=== PATIENT | female | born 1975 | race Caucasian/White ===

== ENCOUNTER → 2020-01-25 14:12 | Outpatient (CLI) | payer OTHER | END | disposition home or self-care (01) | LOC: EKG 14:12 → LAB 14:12 | PROVIDERS: ATTEND Obstetrics & Gynecology | DX: R07.89 Other chest pain (principal) ==

== ENCOUNTER 2020-04-17 12:57 | Day surgery (SDC) | payer OTHER ==
[~2020-04-17 12:57] MED LIST: ACTOS15 MG PO; LOSARTAN-HCTZ1 EAC1 PO; METFORMIN HCL1000 M2 PO; NORVASC10 MG PO; TRULICITY0.75 MG/0. SQ
[2020-04-17] MEDS ORDERED: KETO10TA2 PO (17:22)
[2020-04-17] MEDS ORDERED: PERCOCET 5-3251 EACH PO (17:24)
== END 2020-04-17 19:50 | disposition home or self-care (01) ==
LOC: CIR.AMB 12:57
PROVIDERS: ATTEND Obstetrics & Gynecology
DX: C53.8 Malignant neoplasm of overlapping sites of cervix uteri (principal); R87.613 High grade squamous intraepithelial lesion on cytologic smear of cervix (HGSIL)

== ENCOUNTER 2020-06-26 11:30 | Inpatient (IN) | payer OTHER ==
[~2020-06-26] VITALS: Ht 170.2 cm; Wt 95.3 kg
[~2020-06-26 11:30] MED LIST changes: +KETO10TA2 PO; +PERCOCET 5-3251 EACH PO
[2020-06-26] MEDS ORDERED: ZOLOFT25 MG PO (15:02)
[2020-06-26] MEDS ORDERED: CARDIZEM30 MG PO (15:02)
[2020-07-04] MEDS ORDERED: COLACE100 MG PO (09:49)
[2020-07-04] MEDS ORDERED: ULTRACET PO (09:50)
== END 2020-07-04 11:49 | disposition home or self-care (01) | DRG 741 ==
LOC: O/R 07-03 06:10 → SURH 07-03 08:30 → OB/GYN 07-03 14:25
PROVIDERS: ADMIT Obstetrics & Gynecology Gynecologic Oncology; ATTEND Obstetrics & Gynecology Gynecologic Oncology
PROC: 0UB74ZZ Excision of Bilateral Fallopian Tubes, Percutaneous Endoscopic Approach (ICD-10-PCS; 2020-07-03)
PROC: 07BC4ZZ Excision of Pelvis Lymphatic, Percutaneous Endoscopic Approach (ICD-10-PCS; 2020-07-03)
PROC: 0UT94ZZ Resection of Uterus, Percutaneous Endoscopic Approach (ICD-10-PCS; principal; 2020-07-03 08:30)
DX: C53.0 Malignant neoplasm of endocervix (principal); D25.2 Subserosal leiomyoma of uterus; N83.8 Other noninflammatory disorders of ovary, fallopian tube and broad ligament; N93.8 Other specified abnormal uterine and vaginal bleeding; I10 Essential (primary) hypertension; E11.9 Type 2 diabetes mellitus without complications